=== PATIENT | female | born 1975 | race African-American/Black ===

== ENCOUNTER 2024-11-30 12:58 | Emergency (ER) | payer MEDICARE, OTHER ==
[~2024-11-30] VITALS: Ht 170.2 cm; Wt 86.2 kg
[2024-11-30 14:14] LABS: PLATELET COUNT (AUTO) 360 K/uL (150-450); RED BLOOD CELL COUNT(AUTO) 4.42 MIL/uL (4.0-5.2); RED CELL DISTRIBUTION WIDTH 14.1 % (11.5-15.0); WHITE BLOOD COUNT (AUTO) 6.4 K/uL (4.3-11.0)
[2024-11-30 14:20] LABS: CALCIUM, SERUM 8.8 mg/dL (8.5-10.1); CREATININE 0.9 mg/dL (0.6-1.3); SODIUM SERUM 137 mmol/L (136-145); UREA NITROGEN, BLOOD 16 mg/dL (7-18)
[2024-11-30] MEDS ORDERED: KETO10TA2 PO (15:46)
[2024-11-30 16:37] VITALS: BP 109/71; TEMP 98.1; O2SAT 99
== END 2024-11-30 16:38 | disposition home or self-care (01) ==
LOC: ER 13:06
DX: M94.0 Chondrocostal junction syndrome [Tietze] (principal)
CPT/HCPCS: 36415; 71045-TC; 80048-TC; 83880; 84484-TC; 85025-TC